=== PATIENT | male | born 1970 | race Caucasian/White ===

== ENCOUNTER 2016-07-17 19:22 | Emergency (ER) | payer MEDICAID ==
[~2016-07-17] VITALS: Ht 180.3 cm; Wt 80.1 kg
[~2016-07-17 19:22] MED LIST: CLON0.1T PO
[2016-07-17] MEDS ORDERED: KETOROLAC 30 MG/1 ML IVPush ONE (20:30)
[2016-07-17] MEDS ORDERED: SODIUM CHLORIDE 0.9% 1,000ML IV ONE (20:30)
[2016-07-17 21:09] LABS: HEMOGLOBIN 13.8 g/dL (13.7-18.0)
[2016-07-17 21:21] LABS: BLOOD UREA NITROGEN 13 mg/dL (7-18)
[2016-07-17] MEDS ORDERED: KETOROLAC 30 MG/1 ML ONE (21:27)
[2016-07-17 22:48] VITALS: BP 126/77
[2016-07-17] MEDS ORDERED: OXYcodone/APAP 5/325MG TABLET ONE (22:56)
[2016-07-17] MEDS ORDERED: OXYcodone/APAP 5/325MG TABLET PO ONE (23:00)
== END 2016-07-17 23:07 | disposition home or self-care (01) ==
LOC: ED 21:53
DX: R10.9 Unspecified abdominal pain (principal); M10.071 Idiopathic gout, right ankle and foot; R11.0 Nausea
CPT/HCPCS: 36415; 76770; 80048; 81001; 82040; 85025; 96361; 96374; 99285; J1885; J7030; J7512

== ENCOUNTER 2016-09-21 14:28 | Observation (INO) | payer MEDICAID ==
[~2016-09-21] VITALS: Ht 180.3 cm; Wt 78.0 kg
[2016-09-21 15:10] LABS: DAU SCREEN DISCLAIMER
[2016-09-21 15:28] LABS: ASPARTATE AMINO TRANSFERASE 28 U/L (15-37); BLOOD UREA NITROGEN 12 mg/dL (7-18)
[2016-09-21 15:32] LABS: ACETAMINOPHEN < 2 mcg/mL (10-30)
[2016-09-21] MEDS ORDERED: LORazepam 1MG TABLET ONE (17:02)
[2016-09-21] MEDS ORDERED: LORazepam 1MG TABLET PO ONE (17:30)
[2016-09-21] MEDS: NICOTINE 7 MG/24 HR PATCH.TD24 TD SCH (18:00)
[2016-09-21] MEDS ORDERED: ONDANSETRON ODT 4 MG PO PRN (18:00)
[2016-09-21] MEDS ORDERED: BISACODYL 10 MG SUPP PR PRN (18:00)
[2016-09-21] MEDS ORDERED: POLYETHYLENE GLYCOL 17 GM PACKET PO PRN (18:00)
[2016-09-21] MEDS ORDERED: ACETAMINOPHEN 325 MG TABLET ONE (20:17)
[2016-09-21] MEDS ORDERED: COLCHICINE 0.6 MG TABLET PO ONE ×2 (20:30→20:50)
[2016-09-21] MEDS: ACETAMINOPHEN 325 MG TABLET PO PRN (20:39)
[2016-09-21 21:36] VITALS: BP 128/82
[2016-09-21] MEDS ORDERED: TRAZODONE 50MG TABLET ONE (22:37)
[2016-09-21] MEDS ORDERED: TRAZODONE 100MG TABLET PO ONE (23:00)
[2016-09-22 08:00] VITALS: BP 145/86
[2016-09-22] MEDS: SENNA/DOCUSATE TABLET PO SCH (08:54)
[2016-09-22] MEDS: ACETAMINOPHEN 325 MG TABLET PO PRN (08:59)
[2016-09-22] MEDS ORDERED: COLCHICINE 0.6 MG TABLET PO ONE (13:00)
[2016-09-22] MEDS ORDERED: KETOROLAC 30 MG/1 ML IM ONE (14:00)
[2016-09-22] MEDS ORDERED: IBUPROFEN 200 MG TABLET PO PRN (14:00)
[2016-09-22] MEDS: NICOTINE 7 MG/24 HR PATCH.TD24 TD SCH (17:43)
[2016-09-22] MEDS ORDERED: COLCHICINE 0.6 MG TABLET PO SCH (18:00)
[2016-09-22 19:52] VITALS: BP 145/86
[2016-09-22] MEDS: LORazepam 1MG TABLET PO PRN (20:34)
[2016-09-22] MEDS: OXYcodone IR 5MG TABLET PO PRN (20:34)
[2016-09-22] MEDS ORDERED: TRAZODONE 50MG TABLET ONE (22:22)
[2016-09-22] MEDS ORDERED: TRAZODONE 100MG TABLET PO PRN (22:30)
[2016-09-23] MEDS: OXYcodone IR 5MG TABLET PO PRN ×4 (03:23→21:35)
[2016-09-23 07:43] VITALS: BP 131/75
[2016-09-23] MEDS: LORazepam 1MG TABLET PO PRN (08:48)
[2016-09-23] MEDS: SENNA/DOCUSATE TABLET PO SCH (08:48)
[2016-09-23] MEDS ORDERED: OLANZAPINE 10 MG TABLET PO PRN (10:00)
[2016-09-23] MEDS ORDERED: OLANZAPINE 5 MG TABLET ONE (10:37)
[2016-09-23] MEDS ORDERED: THIAMINE 100MG TABLET PO SCH (12:00)
[2016-09-23] MEDS ORDERED: MULTIVITAMINS/MINERALS TABLET PO SCH (12:00)
[2016-09-23] MEDS ORDERED: FOLIC ACID 1 MG TABLET PO SCH (12:00)
[2016-09-23] MEDS ORDERED: LORazepam 1MG TABLET PO PRN (16:00)
[2016-09-23] MEDS: NICOTINE 7 MG/24 HR PATCH.TD24 TD SCH (18:00)
[2016-09-23 19:54] VITALS: BP 153/96
[2016-09-23] MEDS ORDERED: QUETIAPINE 25MG TABLET PO SCH ×2 (21:00)
== END 2016-09-23 21:42 ==
LOC: ED 17:45 → INTOOBSV 17:57 → EDIP 17:57 → ED 18:05 → 3E 21:34
PROVIDERS: ADMIT Internal Medicine; ATTEND Internal Medicine
DX: R45.851 Suicidal ideations (principal); F32.9 Major depressive disorder, single episode, unspecified; R00.0 Tachycardia, unspecified; F10.220 Alcohol dependence with intoxication, uncomplicated; F17.210 Nicotine dependence, cigarettes, uncomplicated; D72.829 Elevated white blood cell count, unspecified; F41.9 Anxiety disorder, unspecified; M10.9 Gout, unspecified; Z87.442 Personal history of urinary calculi
CPT/HCPCS: 36415; 80053; 80307; 80329; 84550; 85025; 96372; 99285; G0378; J1885; G0480

== ENCOUNTER 2017-04-04 07:57 | Emergency (ER) | payer MEDICAID, OTHER ==
[~2017-04-04] VITALS: Ht 180.3 cm; Wt 81.0 kg
[2017-04-04] MEDS ORDERED: LORazepam 2 MG/ML, 1ML IVPush ONE (08:30)
[2017-04-04] MEDS ORDERED: SODIUM CHLORIDE 0.9% 1,000ML IVBOLUS ONE (08:30)
[2017-04-04] MEDS ORDERED: ASPIRIN 81 MG TABLET CHEW PO ONE (08:30)
[2017-04-04] MEDS ORDERED: LORazepam 2 MG/ML, 1ML ONE (08:34)
[2017-04-04] MEDS ORDERED: ASPIRIN 81 MG TABLET CHEW ONE (08:34)
[2017-04-04 08:38] LABS: HEMATOCRIT 50.2 % (39.2-51.8); WHITE BLOOD COUNT 7.8 x10^3/uL (3.4-10)
[2017-04-04 08:49] LABS: BLOOD UREA NITROGEN 11 mg/dL (7-18)
[2017-04-04 09:00] LABS: IS PT STATUS REG ER OR PRE ER? YES
[2017-04-04 09:56] VITALS: BP 149/98
== END 2017-04-04 10:09 | disposition home or self-care (01) ==
LOC: ED 10:03
DX: R00.2 Palpitations (principal); M25.561 Pain in right knee
CPT/HCPCS: 36415; 71010; 80048; 80307; 82040; 82550; 84484; 85025; 93005; 96361; 96374; 99285; J2060; J7030; G0479

== ENCOUNTER 2017-05-22 12:34 | Emergency (ER) | payer MEDICAID ==
[~2017-05-22] VITALS: Ht 180.3 cm; Wt 85.4 kg
[2017-05-22 12:36] VITALS: BP 148/85
[2017-05-22] MEDS ORDERED: METO25TA4 PO (13:05)
[2017-05-22] MEDS ORDERED: KETOROLAC 30 MG/1 ML ONE (13:10)
[2017-05-22] MEDS ORDERED: KETOROLAC 30 MG/1 ML IM ONE (13:30)
== END 2017-05-22 14:10 | disposition home or self-care (01) ==
LOC: ED 13:04
DX: M13.162 Monoarthritis, not elsewhere classified, left knee (principal); I10 Essential (primary) hypertension; F17.210 Nicotine dependence, cigarettes, uncomplicated
CPT/HCPCS: 73564; 96372; 99284; J1885